=== PATIENT | female | born 1980 | race Caucasian/White ===

== ENCOUNTER 2020-03-28 21:17 | Emergency (ER) | payer BC ==
[~2020-03-28] VITALS: Ht 165.1 cm; Wt 108.9 kg
[~2020-03-28 21:17] MED LIST: BUPROPION HCL100 MG PO; LISINOPRIL10 MG PO; NORCO 5-325 TA1 EACH PO
[2020-03-28] MEDS ORDERED: CLINDAMYCIN HC300 MG PO (21:37)
== END 2020-03-28 21:46 | disposition home or self-care (01) ==
LOC: ED 21:17
DX: K04.7 Periapical abscess without sinus (principal); I10 Essential (primary) hypertension; Z88.0 Allergy status to penicillin
CPT/HCPCS: 99282

== ENCOUNTER 2020-04-07 21:12 | Emergency (ER) | payer BC ==
[~2020-04-07] VITALS: Ht 165.1 cm; Wt 116.0 kg
[~2020-04-07 21:12] MED LIST changes: +CLINDAMYCIN HC300 MG PO
--- OUTSIDE RECORDS SUMMARY | 2020-04-07 21:14 | XMS ---
PreManage Notification: WENDIE PEREIRA Security Residential Instructor Events No recent Security Events currently on file CRITERIA MET - [facility] - 2 Visits in 30 Days CARE PROVIDERS There are no care providers on record at this time. Ernesto has no Care Guidelines for this patient. K[facility] V[facility] (12 MO.) [facility] T[facility] 2 NOTE: Visits indicate total known visits. ED/[facility] VISIT TRACKING (12 MO.) [facility] COMPLAINT: - DENTAL PAIN 03/28/2020 21:18 [facility] TYPE: Emergency COMPLAINT: - DENTAL PROBLEM DIAGNOSES: - Essential (primary) hypertension - Periapical abscess without sinus - Allergy status to penicillin INPATIENT VISIT TRACKING (12 MO.) No inpatient visits to display in this time frame [id number]
[2020-04-07] MEDS ORDERED: HYDROCODON-ACE1 EA10 PO (21:33)
[2020-04-07] MEDS ORDERED: METHYLPREDNISOLO4 M1 PO (21:34)
[2020-04-07] MEDS ORDERED: LISINOPRIL20 MG PO (21:35)
== END 2020-04-08 00:12 | disposition home or self-care (01) ==
LOC: ED 21:12
DX: K04.7 Periapical abscess without sinus (principal); I10 Essential (primary) hypertension; Z88.0 Allergy status to penicillin; Z79.899 Other long term (current) drug therapy; Z79.52 Long term (current) use of systemic steroids
CPT/HCPCS: 96374; 96375; 99282-25; J1100